=== PATIENT | male | born 1955 | race Hispanic/Latino ===

== ENCOUNTER 2016-10-08 10:52 | Inpatient (IN) | payer MEDICAID, OTHER ==
[2016-09-17 10:06] VITALS: BMI 27.8
[2016-10-08] MEDS ORDERED: Lactated Ringer's 1,000 ML IV ONE ×2 (12:14)
[2016-10-08] MEDS ORDERED: Lidocaine 2% Jelly (Uro-Jet) ONE (12:23)
[2016-10-08] MEDS ORDERED: cefTRIAXone IV 1 gm in Dextros 50 ML IVPB ONE (12:23)
[2016-10-08] MEDS ORDERED: Midazolam 2 MG/2 ML VIAL ONE (12:45)
[2016-10-08] MEDS ORDERED: Propofol 10 mg/ml Inj (20 ML) ONE (12:45)
[2016-10-08] MEDS ORDERED: Neostigmine Methylsulfate 3mg/3ml Syringe IV ONE (14:05)
[2016-10-08] MEDS ORDERED: Oxycodone/Acetaminophen 5/325 mg Tab PO PRN (14:21)
[2016-10-08] MEDS ORDERED: Racepinephrine 2.25% Inhal Soln 0.5 ML UD ONE (14:22)
[2016-10-08] MEDS ORDERED: HYDROmorphone 0.5 mg/0.5 ml ISec IVP PRN (14:25)
[2016-10-08] MEDS ORDERED: Dexamethasone 4 mg/1 ml IVP PRN (14:25)
[2016-10-08] MEDS ORDERED: Racepinephrine 2.25% Inhal Soln 0.5 ML UD INH ONE (14:45)
[2016-10-08] MEDS ORDERED: Gentamicin 80 mg in 0.9% NS 80 MG/100 ML BAG IVPB ONE (14:48)
--- NOTE | 2016-10-08 22:12 | OP ---
PROCEDURE DATE: 10/08/2016 PREOPERATIVE DIAGNOSES: Urinary retention, prostate cancer, voiding dysfunction, hematuria, elevated PSA, and occasional overflow incontinence. POSTOPERATIVE DIAGNOSES: Urinary retention, prostate cancer, voiding dysfunction, hematuria, elevated PSA, and occasional overflow incontinence. PROCEDURE: PVP GreenLight laser TURP. SURGEON: Dr. Terrence Hernández. ESTIMATED BLOOD LOSS: Less than 25 mL. COMPLICATIONS: There were no complications. INDICATIONS: See history and physical for further details. A very pleasant gentleman, here for the above procedure. We discussed the options of including the risks and expectations for ejaculatory dysfunction, specifically retrograde, we also discussed the permanent . We also discussed the treat the prostate cancer per se at all, but may help his urinary retention. We did discuss open prostatectomy. We discussed robotic prostatectomy. We had many discussions with the patient, with the sister, but she has passed on. I had further discussion with the patient. She is here now for the above procedure. DESCRIPTION OF PROCEDURE: After obtaining informed consent, the patient was placed on the table. Routine monitor were placed. Time-out was called to confirm the patient's positioning, etc. We confirmed the patient. The patient was in lithotomy position. Time-out was called. Antibiotic prophylaxis was given and administered. I just want to mention upon introduction of the resectoscope, we used a 22-Czech resectoscope continuous flow. We introduced with a visual obturator. No stricture was identified from the previous study . Vessel drained more than a liter of urine, but it is all clear urine. We now inspected the bladder, extremely heavily trabeculated. It is an interesting picture. At this point, we could not identify the orifice . The bladder neck was identified. We began our resection with power of 80. went across the bladder neck at 5 and 7. We then worked our way to 7 and 11 and factor 1. We increased the up to about 120. It went very nicely and smoothly. were nicely wide open. From the vera, we kept the vera intact. Picture was taken with the water not running. We made sure, we had good coagulation, any bleeding was stopped with coags, but really it was minimal bleeding. The patient tolerated this procedure without complication. At this point, we inserted a Carrillo catheter to the right urethra, 22-Czech. I also want to mention that when I took out the resectoscope and I watched the urine flow, it was a very good strong stream with a full bladder. The patient tolerated the procedure without complication, brought to the recovery room with the CBI running with the urine essentially clear. Minimal blood noted. The patient will be admitted to the hospital for observation, so we can monitor him closely, and I will discuss the timings of the catheter removed. We have to discuss and hopefully preop. Hopefully, the bladder will resume some of its function. Terrence Hernández MD
--- NOTE | 2016-10-08 23:04 | HP ---
REASON FOR ADMISSION: Urinary retention and prostate cancer. HISTORY OF PRESENT ILLNESS: Mr. Sweeney is a very pleasant gentleman. He is 61 years old. He mostly lives alone. He used to come to the office with his sister who has recently passed who was instrumental in helping him. The plan after much discussion with her and him at that time was for today for a PVP GreenLight laser TURP. The patient has underlying prostate cancer very low grade and very few biopsies that are positive. We had discussed options, the possibility of a treatment, with an open prostatectomy which may help his urinary retention as well. The possibility for what we are planning for now is PVP GreenLight laser TURP with the eventual possibility for radiation therapy. He is a relatively young gentleman with some underlying hypertension. No history of diabetes. And he is being admitted now today for PVP GreenLight laser TURP. I have explained to the patient, risks, benefits, and alternatives. The risk and specifically the expectation for retrograde ejaculation are discussed. We also discussed other risks. We discussed that this therapy does not treat prostate cancer. And we also explained that there is a risk that it will not stop his retention especially given his history. PAST MEDICAL/SURGICAL HISTORY: As mentioned above. No history of diabetes, underlying hypertension. He has a history of thyroid. He also has some psychiatric history. I think there is a large component. I have explained to the patient, above his urinary retention is his psychiatric medication. But he needs them for obvious reasons. MEDICATIONS: See the chart. ALLERGIES: NONE. SOCIAL HISTORY: Essentially as mentioned above. PHYSICAL EXAMINATION GENERAL: Well-nourished male, in no apparent distress. VITAL SIGNS: Within normal limits. LUNGS: Clear. ABDOMEN: Soft. Difficult to evaluate for distention. GENITOURINARY: I know that on bladder scan he always has at least a liter in his bladder. He has normal bowels. He is circumcised. No testicular masses. RECTAL: 30g prostate, soft and smooth. LABORATORY DATA: See the chart. DIAGNOSES: Prostate cancer, urinary retention, and voiding dysfunction. This is a very pleasant gentleman with his retention. He has no upper tract disease obvious at this point. We are planning for PVP GreenLight laser TURP and then we are going to plan for discussing the possibility for radiation. I am trying to assess who is part of his care now that his sister has passed. So the plan is as follows: 1. Antibiotic prophylaxis. 2. PVP GreenLight laser TURP and then further plans will follow. ADDENDUM: Patient also has another urologist before me and I have been discussing care with him as well. And we will keep him in the loop as well. Terrence Hernández MD
[2016-10-09] MEDS: Levothyroxine 75 MCG TAB PO SCH (06:04)
--- NOTE | 2016-10-09 13:15 | PCM.PSYCH ---
Initial Psychiatric Evaluation - Initial Psychiatric Evaluation Chief Complaint (in patient's own words): "I hear voices sometimes" Patient's Reaction to Hospitalization: cooperative History of Present Illness and Precipitating Events: The patient was seen, the chart was reviewed and the case was discussed. Mr Galvin is a 61 year old male with a past psychiatric history of schizoaffective disorder - bipolar type, who is admitted for a Transurethral resection of the prostate with Dr Mikey Hernández. During our interview he was very pleasant and only admitted to fatigue. He did not have disorganized speech or behavior or delusions. The patient currently denies any psychiatric symptoms including auditory hallucinations, visual hallucinations, paranoia, or having special schaefer. He stated he's heard voices in the past as if God was talking to him. He sees Dr Lawrence every 3 months for treatment of his psychiatric illness. He stated he's been admitted to a hospital for his psychiatric illness about 10-12x in the past with his last hospitalization in 2006. Psychiatric Hx: Schizoaffective disorder - bipolar type Other Medical Hx: Prostate CA s/p TURP, hypothyroidism Psychiatric Medications: aripiprazole 2mg po daily, benztropine 1mg po bid, clonazepam 0.5mg po bid, escitalopram 20mg po daily, perphenazine 16mg po bid, risperdal 2mg qam/qpm and 4mg po qpm, risperdal 4mg po hs Social Hx: single, lives by himself, no children, denies EtOH abuse, denies all other drug abuse; sister recently who was instrumental in taking care of him Fam Hx: denies Current Medications: Active Medications Generic Name Dose Route Start Last Admin Trade Name Freq PRN Reason Stop Dose Admin Aripiprazole 2 mg 10/10/16 10:00 Abilify PO DAILY CATHIE Benztropine Mesylate 1 mg 10/09/16 18:00 Cogentin PO BID CATHIE Clonazepam 0.5 mg 10/09/16 18:00 Klonopin PO BID CATHIE Escitalopram Oxalate 20 mg 10/10/16 10:00 Lexapro PO DAILY CATHIE Home Med 16 mg 10/09/16 18:00 Perphenazine [Perphenazine] PO BID CATHIE Gentamicin Sulfate 80 mg/ 102 mls @ 100 mls/hr 10/08/16 14:30 10/08/16 14:45 Sodium Chloride IVPB 102 mls Q24H CATHIE Administration Levothyroxine Sodium 75 mcg 10/09/16 06:30 10/09/16 06:04 Synthroid PO 75 mcg DAILY@0630 CATHIE Administration Lisinopril 10 mg 10/09/16 10:00 10/09/16 10:18 Zestril PO 10 mg DAILY CATHIE Administration Oxycodone/Acetaminophen 1 tab 10/08/16 14:21 10/08/16 21:50 Percocet 5/325 Mg Tab PO 10/11/16 14:22 1 tab Q6H PRN Administration Bladder Spasm Risperidone 4 mg 10/08/16 22:00 10/08/16 21:51 Risperdal Tab PO 4 mg HS CATHIE Administration Risperidone 2 mg 10/10/16 10:00 Risperdal Tab PO QAM [facility] Past Psychiatric History - Past Psychiatric History Prior Professional Help: Patient of Dr Lawrence outpatient Prior Psychiatric Treatment: 10-12x prior hospital visits for psychiatric related symptoms History of ETOH/Drug Use: denies History of Family Illness: denies Pertinent Medical Hx (Current Medical&Sleep Prob, Allergies): Allergies Allergy/AdvReac Type Severity Reaction Status Date / Time hydrochlorothiazide Allergy Verified 06/03/15 11:43 [From Dyazide] triamterene [From Dyazide] Allergy Verified 06/03/15 11:43 Levothyroxine [Synthroid] 0.075 mg PO DAILY 08/13/14 Benztropine [Cogentin] 1 mg PO BID 06/03/15 Escitalopram [Lexapro] 20 mg PO DAILY 06/03/15 Lisinopril 10 mg PO DAILY 06/03/15 Tamsulosin [Flomax] 0.4 mg PO DAILY #30 cap 06/03/15 clonazePAM [Klonopin] 0.5 mg PO BID 06/03/15 Omeprazole 1 cap PO DAILY 09/05/15 ARIPiprazole [Abilify] 2 mg PO DAILY 09/17/16 Perphenazine 16 mg PO BID 09/17/16 Risperidone [Risperdal] 2 mg PO QAM 10/08/16 Risperidone [Risperdal] 4 mg PO QPM 10/08/16 Review of Systems - Psychiatric Psychiatric: absent: Anxiety, Auditory Hallucinations, Confusion, Depression, Homicidal Ideation, Irritability, Suicidal Ideation, Visual Hallucinations Mental Status Examination - Personal Presentation Personal Presentation: Looks older than stated age - Affect Affect: Constricted - Motor Activity Motor Activity: Calm - Reliability in Providing Information Reliability in Providing Information: Good - Speech Speech: Organized - Mood Mood: Neutral - Formal Thought Process Formal Thought Process: No Impairment - Obsessions/Compulsions Obsessions: No Compulsions: No - Cognitive Functions Orientation: Person, Place, Situation, Time Sensorium: Alert Attention/Concentration: Attentive Abstract Thinking: Hale Estimate of Intelligence: Average Judgement: Imparied, as evidence by: Lack of insight into illness Memory: Recent intact, as evidence by: Ability to recall events of the day - Risk Risk: Diminished functioning - Limitations Limitations: Living alone, Other (sister recently who was instrumental in taking care of him) DSM 5 DX - DSM 5 DSM 5 Diagnosis: psychoaffective disorder - bipolar type - Recommended/Plan of Treatment Treatment Recommendations and Plan of Treatment: CBT Psychoeducation Supportive therapy con't home psychiatric medications con't aripiprazole 2mg po daily con't benztropine 1mg po bid con't clonazepam 0.5mg po bid con't escitalopram 20mg po daily con't risperidone 2mg po qam con't risperidone 4mg po hs pt was encouraged to continue seeing his outpatient psychiatrist time spent: 29 mins Prognosis: good with treatment
[2016-10-09] MEDS ORDERED: PERPHENAZINE 16 MG PO SCH (18:00)
[2016-10-10 05:44] VITALS: TEMP 98
[2016-10-10] MEDS: Levothyroxine 75 MCG TAB PO SCH (06:13)
[2016-10-10 08:27] VITALS: RESP 18; O2SAT 96
[2016-10-10] MEDS ORDERED: cefTRIAXone 1 gm in Water For Injection 2.1 ML IM ONE (09:00)
[2016-10-10 10:00] VITALS: BP 108/76
[2016-10-10 10:32] VITALS: PULSE 105
== END 2016-10-10 13:38 | disposition home or self-care (01) | DRG 336 ==
LOC: C.SDS 10:52 → C.9S 14:40 → C.6T 17:29
PROVIDERS: ADMIT Urology; ATTEND Urology
PROC: 0VT08ZZ Resection of Prostate, Via Natural or Artificial Opening Endoscopic (ICD-10-PCS; principal; 2016-10-08 12:30)
DX: C61 Malignant neoplasm of prostate (principal); F25.0 Schizoaffective disorder, bipolar type; N32.89 Other specified disorders of bladder; R31.9 Hematuria, unspecified; R33.9 Retention of urine, unspecified; N39.490 Overflow incontinence; I10 Essential (primary) hypertension; E03.9 Hypothyroidism, unspecified

== ENCOUNTER 2017-06-10 13:22 | Observation (INO) | payer OTHER ==
[2017-06-05 08:40] VITALS: BMI 25.8
[2017-06-10] MEDS ORDERED: Propofol 10 mg/ml Inj (20 ML) ONE (17:05)
[2017-06-10] MEDS ORDERED: Ciprofloxacin 400mg/200ml D5W 400 MG/200 ML BAG IVPB ONE (17:16)
[2017-06-10] MEDS ORDERED: HYDROmorphone 0.5 mg/0.5 ml ISec IVP PRN (17:44)
[2017-06-10 23:19] VITALS: RESP 20
[2017-06-11] MEDS: Oxycodone/Acetaminophen 5/325 mg Tab PO PRN ×2 (00:11→18:08)
--- NOTE | 2017-06-11 14:57 | CP.PCM.CON ---
<Joleen Rosales - Last Filed: 06/11/17 15:32> History of Present Illness - History of Present Illness History of Present Illness: Medicine Consult for Dr. Frazier 61 year old male s/p transrectal prostate biopsy for malignant prostate neoplasm by Dr. Hernández who consulted medicine for patient's extensive medical history consisting of hypertension, hypothyroidism, and several psych disorders. Patient is a poor historian. Patient is seen in slight discomfort following biopsy yesterday. He is complaining of slight left sided lower abdominal pain that began after the surgery. Patient states he had one bowel movement with very loose consistency and small amounts of blood. Patient also complains of slight nausea although he states he was able to eat breakfast this morning. Patient denies chest pain, shortness of breath, abdominal pain, fevers , chills, or cough. PMD: Dr. Navya Rhodes Psychiatrist: Dr. Gareth Lawrence Past medical history: prostate cancer, hypertension, hypothyroidism, multiple psych disorders allergies: triamterene -reaction: patient faints surgical: prostate biopsy and other prostate surgery that patient could not remember Family history: aunt with breast cancer, schizophrenia and bipolar disorder in family medications: Abilify 2mg po, Benztropine 1mg BID, Klonopin .5 mg PO BID Lexapro 20mg PO Synthroid 75 mcg po Lisinopril 10mg po Percocet 5/325 q6 prn Risperdal 2mg po am Risperdal 4mg po pm tamsulosin.4mg po Review of Systems - Constitutional Constitutional: Anorexia. absent: Chills - EENT Eyes: absent: Blurred Vision - Cardiovascular Cardiovascular: absent: Chest Pain, Dyspnea, Leg Edema, Palpitations, Pedal Edema - Respiratory Respiratory: absent: Cough, Dyspnea - Gastrointestinal Gastrointestinal: Abdominal Pain, Hematochezia, Nausea. absent: Vomiting - Integumentary Integumentary: absent: Rash - Psychiatric Psychiatric: Confusion - Hematologic/Lymphatic Hematologic: absent: Easy Bleeding, Easy Bruising Past Patient History - Past Medical History & Family History Past Medical History?: Yes - Past Social History Smoking Status: Never Smoked - CARDIAC Hx Cardiac Disorders: Yes Hx Hypertension: Yes Other/Comment: ENLARGED HEART - PULMONARY Hx Respiratory Disorders: Yes Hx Bronchitis: Yes - NEUROLOGICAL Hx Neurological Disorder: Yes Hx Seizures: Yes (PATIENT DENIES he shakes when anxious) - HEENT Hx HEENT Problems: Yes (READING GLASSES) - RENAL Hx Chronic Kidney Disease: Yes (renal insufficiency) - ENDOCRINE/METABOLIC Hx Endocrine Disorders: Yes Hx Hypothyroidism: Yes - HEMATOLOGICAL/ONCOLOGICAL Hx Blood Disorders: Yes Hx Cancer: Yes (bladder and prostate) - INTEGUMENTARY Hx Dermatological Problems: No - MUSCULOSKELETAL/RHEUMATOLOGICAL Hx Musculoskeletal Disorders: No Hx Falls: No - GASTROINTESTINAL Hx Gastrointestinal Disorders: Yes Hx Gastroesophageal Reflux: Yes - GENITOURINARY/GYNECOLOGICAL Hx Genitourinary Disorders: Yes Hx Bladder Cancer: Yes Hx Prostate Cancer: Yes Hx Prostate Problems: Yes - PSYCHIATRIC Hx Psychophysiologic Disorder: Yes Hx Anxiety: Yes Hx Bipolar Disorder: Yes Hx Depression: Yes Hx Schizophrenia: Yes Hx Substance Use: No - SURGICAL HISTORY Hx Surgeries: Yes Other/Comment: DENTAL EXTRACTIONS. PROSTATE BIOPSY TURP CYSTOSCOPY TURBT - ANESTHESIA Hx Anesthesia: Yes Hx Anesthesia Reactions: No Hx Malignant Hyperthermia: No Has any member of the family had a problem w/ anesthesia?: No Meds Allergies/Adverse Reactions: Allergies Allergy/AdvReac Type Severity Reaction Status Date / Time hydrochlorothiazide Allergy Intermediate DIZZINESS Verified 06/05/17 08:40 [From Dyazide] triamterene [From Dyazide] Allergy Intermediate DIZZINESS Verified 06/05/17 08: 40 - Medications Medications: Current Medications Aripiprazole (Abilify) 2 mg PO DAILY [facility] Last Admin: 06/11/17 10:56 Dose: 2 mg Benztropine Mesylate (Cogentin) 1 mg PO BID [facility] Last Admin: 06/11/17 10:55 Dose: 1 mg Clonazepam (Klonopin) 0.5 mg PO BID [facility] Last Admin: 06/11/17 10:55 Dose: 0.5 mg Escitalopram Oxalate (Lexapro) 20 mg PO DAILY [facility] Last Admin: 06/11/17 11:45 Dose: 20 mg Levothyroxine Sodium (Synthroid) 75 mcg PO 0630 [facility] Lisinopril (Zestril) 10 mg PO DAILY [facility] Last Admin: 06/11/17 10:55 Dose: 10 mg Oxycodone/Acetaminophen (Percocet 5/325 Mg Tab) 1 tab PO Q6H PRN PRN Reason: Bladder Spasm Stop: 06/13/17 18:09 Last Admin: 06/11/17 00:11 Dose: 1 tab Risperidone (Risperdal Tab) 2 mg PO QAM [facility] Last Admin: 06/11/17 10:55 Dose: 2 mg Risperidone (Risperdal Tab) 4 mg PO QPM [facility] Tamsulosin HCl (Flomax) 0.4 mg PO DAILY [facility] Last Admin: 06/11/17 10:55 Dose: 0.4 mg Physical Exam - Constitutional Appears: Well - Head Exam Head Exam: ATRAUMATIC, NORMAL INSPECTION, NORMOCEPHALIC - Eye Exam Eye Exam: EOMI, Normal appearance, PERRL Pupil Exam: NORMAL ACCOMODATION, PERRL - ENT Exam ENT Exam: Mucous Membranes Moist, Normal Exam - Neck Exam Neck exam: Positive for: Normal Inspection - Respiratory Exam Respiratory Exam: Clear to Auscultation Bilateral, NORMAL BREATHING PATTERN - Cardiovascular Exam Cardiovascular Exam: REGULAR RHYTHM - GI/Abdominal Exam GI & Abdominal Exam: Normal Bowel Sounds, Soft. absent: Tenderness - Extremities Exam Extremities exam: Positive for: normal inspection. Negative for: pedal edema - Back Exam Back exam: NORMAL INSPECTION - Neurological Exam Neurological exam: Alert, CN II-XII Intact, Normal Gait, Oriented x3 - Psychiatric Exam Psychiatric exam: Flat Affect, Normal Mood - Skin Skin Exam: Dry, Intact, Normal Color, Warm Results - Vital Signs Recent Vital Signs: Last Vital Signs Temp 98.2 F 06/11/17 07:30 Pulse 76 06/11/17 07:30 Resp 20 06/11/17 07:30 BP 120/74 06/11/17 07:30 Pulse Ox 97 06/11/17 12:00 Assessment & Plan - Assessment and Plan (Free Text) Assessment: S/P POD #1 Transrectal Prostate Biopsy management as per Dr. Betty Wei for pain Flomax .4mg po daily Schizophrenia/ other psychiatric disorder continue home medications: Abilify 2mg po daily Benztropine 1mg po BID Klonopin .5mg po BID Lexapro 20mg po daily Risperidone 2mg po qam Risperidone 4mg po qpm Perphenazine 16mg po BID patient to continue to follow with psychiatrist as an outpatient Hypothyroidism continue home medication: Synthroid 75mcg po HTN continue home medication: Lisinopril 10mg po daily GERD home med omeprazole is NF Protonix 20mg po daily Plan discussed with Dr. Frazier <Sotero Frazier - Last Filed: 06/13/17 17:14> Results - Vital Signs Recent Vital Signs: Last Vital Signs Temp 98.4 F 06/12/17 07:48 Pulse 92 H 06/12/17 07:48 Resp 20 06/12/17 07:48 BP 101/68 06/12/17 07:48 Pulse Ox 96 06/12/17 12:30 - Labs Result Diagrams: 06/12/17 07:00 06/12/17 07:00 Attending/Attestation - Attestation I have personally seen and examined this patient.: Yes I have fully participated in the care of the patient.: Yes I have reviewed all pertinent clinical information: Yes Notes (Text): Patient was seen and examined by me with the resident I agree with the assessment and the plan 06/13/17 17:13
[2017-06-11] MEDS: Pantoprazole 40 mg EC Tab PO SCH (18:06)
[2017-06-11 23:16] VITALS: O2SAT 96
--- NOTE | 2017-06-11 23:16 | PCM.URO ---
Urology Progress Note - General General: No Complaints, Tolerating Diet - Subjective Abdominal Pain: No Flank Pain: No Nausea: No Vomiting: No Voiding Well: No (catheter in place) Hematuria: No Dsypnea: No Chest Pain: No Fever & Chills: No - Objective Intake & Output: Intake & Output 06/11/17 06/11/17 06/12/17 06:59 18:59 06:59 Intake Total 720 350 Output Total 1000 1350 500 Balance -1000 -630 -150 Intake: Oral 720 350 Output: Urine 1000 1350 500 Urethral (Carrillo) 1350 500 Other: # Bowel Movements 2 Vital Signs: Vital Signs - 24 hr 06/10/17 06/11/17 06/11/17 23:17 07:30 08:00 Temperature 98.6 F 98.2 F Pulse Rate 69 76 Respiratory 20 20 Rate Blood Pressure 101/62 120/74 O2 Sat by Pulse 96 97 97 Oximetry 06/11/17 06/11/17 12:00 16:00 Temperature 98.4 F Pulse Rate 85 Respiratory 20 Rate Blood Pressure 95/61 L O2 Sat by Pulse 97 98 Oximetry - Physical Exam Abdominal Exam: Soft, Non-Tender, Non-Distended Bowel Sounds: Normal Back: No CVA Tenderness Genitalia: Without Inflammation Urinary Catheter Draining Well: Yes Urine Color: Clear - Male Phallus: Normal Scrotum: Normal - Plan Catheter Care: Yes Ambulation - Out of Bed: Yes Intake & Output: Yes Additional Information: Imp: urinary retention. Hx of prostate cancer. Hx of hypertension, hypothyroidism, schizophrenia. Clinically stable with ctheter in place. - Date & Time of Note Date: 06/11/17 Time: 15:40
[2017-06-12] MEDS ORDERED: Levothyroxine 75 MCG TAB PO SCH (06:30)
[2017-06-12 07:21] LABS: BASO # 0.1 K/uL (0.0-0.2); BASO % 0.8 % (0.0-2.0); EOS # 0.3 K/uL (0.0-0.7); EOS % 3.4 % (0.0-4.0); HEMOGLOBIN 9.9 g/dL (12.0-18.0); LYMPH % 20.4 % (20.0-40.0); MEAN CELL VOLUME 89.5 fL (80.0-94.0); MEAN CORPUSCULAR HEMOGLOBIN 30.5 pg (27.0-31.0); MEAN CORPUSCULAR HGB CONC 34.1 g/dL (33.0-37.0); MEAN PLATELET VOLUME 7.9 fL (7.2-11.7); MONO # 1.1 K/uL (0.0-0.8); MONO % 10.7 % (0.0-10.0); NEUT # 6.4 K/uL (1.8-7.0); NEUT % 64.7 % (50.0-75.0); RBC 3.24 Mil/uL (4.40-5.90); RED CELL DISTRIBUTION WIDTH 13.3 % (11.5-14.5); WHITE BLOOD COUNT 9.9 K/uL (4.8-10.8)
[2017-06-12 07:49] VITALS: BP 101/68; PULSE 92; TEMP 98.4
[2017-06-12 08:02] LABS: ALB/GLOB RATIO 0.9 (1.0-2.1); ALBUMIN 3.2 g/dL (3.5-5.0); ALT/SGPT 18 U/L (21-72); AST/SGOT 27 U/L (17-59); BLOOD UREA NITROGEN 25 mg/dL (9-20); CALCIUM 8.7 mg/dl (8.6-10.4); GFR AFRICAN-AMERICAN > 60; GFR NON-AFRICAN AMERICAN 52
--- NOTE | 2017-06-12 09:21 | CP.PCM.PN ---
Subjective - Date & Time of Evaluation Date of Evaluation: 06/12/17 Time of Evaluation: 07:00 - Subjective Subjective: Progress not for Dr. Frazier Patient seen and examined at bedside and in no acute distress. Patient has not had another bowel movement since yesterday. Patient has no complaints and no pain. Patient denies chest pain, sob, abdominal pain, nausea, vomiting, constipation, or diarrhea. Objective - Vital Signs/Intake and Output Vital Signs (last 24 hours): Temp Pulse Resp BP Pulse Ox 98.4 F 92 H 20 101/68 96 06/12/17 07:48 06/12/17 07:48 06/12/17 07:48 06/12/17 07:48 06/12/17 08:31 Intake and Output: 06/12/17 06/12/17 06:59 18:59 Intake Total 350 240 Output Total 500 900 Balance -150 -660 - Medications Medications: Current Medications Aripiprazole (Abilify) 2 mg PO DAILY [facility] Last Admin: 06/11/17 10:56 Dose: 2 mg Benztropine Mesylate (Cogentin) 1 mg PO BID [facility] Last Admin: 06/11/17 18:07 Dose: 1 mg Clonazepam (Klonopin) 0.5 mg PO BID [facility] Last Admin: 06/11/17 18:07 Dose: 0.5 mg Escitalopram Oxalate (Lexapro) 20 mg PO DAILY [facility] Last Admin: 06/11/17 11:45 Dose: 20 mg Levothyroxine Sodium (Synthroid) 75 mcg PO 0630 [facility] Last Admin: 06/12/17 06:26 Dose: 75 mcg Lisinopril (Zestril) 10 mg PO DAILY [facility] Last Admin: 06/11/17 10:55 Dose: 10 mg Oxycodone/Acetaminophen (Percocet 5/325 Mg Tab) 1 tab PO Q6H PRN PRN Reason: Bladder Spasm Stop: 06/13/17 18:09 Last Admin: 06/11/17 18:08 Dose: 1 tab Pantoprazole Sodium (Protonix Ec Tab) 40 mg PO DAILY [facility] Last Admin: 06/11/17 18:06 Dose: 40 mg Perphenazine (Perphenazine) 16 mg PO BID [facility] Last Admin: 06/11/17 18:11 Dose: 16 mg Risperidone (Risperdal Tab) 2 mg PO QAM [facility] Last Admin: 06/11/17 10:55 Dose: 2 mg Risperidone (Risperdal Tab) 4 mg PO QPM [facility] Last Admin: 06/11/17 21:56 Dose: 4 mg Tamsulosin HCl (Flomax) 0.4 mg PO DAILY [facility] Last Admin: 06/11/17 10:55 Dose: 0.4 mg - Labs Labs: 06/12/17 07:00 06/12/17 07:00 - Additional Findings Additional findings: - Constitutional Appears: Well - Head Exam Head Exam: ATRAUMATIC, NORMAL INSPECTION, NORMOCEPHALIC - Eye Exam Eye Exam: EOMI, Normal appearance, PERRL Pupil Exam: NORMAL ACCOMODATION, PERRL - ENT Exam ENT Exam: Mucous Membranes Moist, Normal Exam - Neck Exam Neck exam: Positive for: Normal Inspection - Respiratory Exam Respiratory Exam: Clear to Auscultation Bilateral, NORMAL BREATHING PATTERN - Cardiovascular Exam Cardiovascular Exam: REGULAR RHYTHM - GI/Abdominal Exam GI & Abdominal Exam: Normal Bowel Sounds, Soft. absent: Tenderness - Extremities Exam Extremities exam: Positive for: normal inspection. Negative for: pedal edema - Back Exam Back exam: NORMAL INSPECTION - Neurological Exam Neurological exam: Alert, CN II-XII Intact, Normal Gait, Oriented x3 - Psychiatric Exam Psychiatric exam: Flat Affect, Normal Mood - Skin Skin Exam: Dry, Intact, Normal Color, Warm Assessment and Plan - Assessment and Plan (Free Text) Assessment: S/P POD #2 Transrectal Prostate Biopsy management as per Dr. Betty Wei for pain Flomax .4mg po daily Schizophrenia/ other psychiatric disorder continue home medications: Abilify 2mg po daily Benztropine 1mg po BID Klonopin .5mg po BID Lexapro 20mg po daily Risperidone 2mg po qam Risperidone 4mg po qpm Perphenazine 16mg po BID patient to continue to follow with psychiatrist as an outpatient Hypothyroidism continue home medication: Synthroid 75mcg po HTN continue home medication: Lisinopril 10mg po daily GERD home med omeprazole is NF Protonix 20mg po daily Plan discussed with Dr. Frazier Patient stable as per medicine, please re-consult if needed. Patient explained importance of following up with psychiatrist and primary doctor as an outpatient.
[2017-06-12] MEDS: Pantoprazole 40 mg EC Tab PO SCH (09:38)
--- NOTE | 2017-06-12 17:15 | CP.PCM.PN ---
Subjective - Date & Time of Evaluation Date of Evaluation: 06/12/17 Time of Evaluation: 17:15 - Subjective Subjective: Alert, awake, no active bleeding or pain. Objective - Vital Signs/Intake and Output Vital Signs (last 24 hours): Temp Pulse Resp BP Pulse Ox 98.4 F 92 H 20 101/68 96 06/12/17 07:48 06/12/17 07:48 06/12/17 07:48 06/12/17 07:48 06/12/17 12:30 Intake and Output: 06/12/17 06/12/17 06:59 18:59 Intake Total 350 740 Output Total 500 1700 Balance -150 -960 - Medications Medications: Current Medications Aripiprazole (Abilify) 2 mg PO DAILY [facility] Last Admin: 06/12/17 09:39 Dose: 2 mg Benztropine Mesylate (Cogentin) 1 mg PO BID [facility] Last Admin: 06/12/17 09:38 Dose: 1 mg Clonazepam (Klonopin) 0.5 mg PO BID [facility] Last Admin: 06/12/17 09:38 Dose: 0.5 mg Docusate Sodium (Colace) 100 mg PO BID [facility] Escitalopram Oxalate (Lexapro) 20 mg PO DAILY [facility] Last Admin: 06/12/17 09:39 Dose: 20 mg Levothyroxine Sodium (Synthroid) 75 mcg PO 0630 [facility] Last Admin: 06/12/17 06:26 Dose: 75 mcg Lisinopril (Zestril) 10 mg PO DAILY [facility] Last Admin: 06/12/17 09:38 Dose: 10 mg Oxycodone/Acetaminophen (Percocet 5/325 Mg Tab) 1 tab PO Q6H PRN PRN Reason: Bladder Spasm Stop: 06/13/17 18:09 Last Admin: 06/11/17 18:08 Dose: 1 tab Pantoprazole Sodium (Protonix Ec Tab) 40 mg PO DAILY [facility] Last Admin: 06/12/17 09:38 Dose: 40 mg Perphenazine (Perphenazine) 16 mg PO BID [facility] Last Admin: 06/12/17 09:39 Dose: 16 mg Risperidone (Risperdal Tab) 2 mg PO QAM [facility] Last Admin: 06/12/17 09:38 Dose: 2 mg Risperidone (Risperdal Tab) 4 mg PO QPM [facility] Last Admin: 06/11/17 21:56 Dose: 4 mg Tamsulosin HCl (Flomax) 0.4 mg PO DAILY [facility] Last Admin: 06/12/17 09:37 Dose: 0.4 mg - Labs Labs: 06/12/17 07:00 06/12/17 07:00 Assessment and Plan - Assessment and Plan (Free Text) Assessment: Patient with urinary retention, post cystoscopy by DR Hernández, alert and orientedx3, no bleeding noted. Carrillo catheter discontinued as per DR Hernández. Discharged home on augmentin for 7 days. Advised to follow up with DR Hernández in 1 week. To continue with home meds.
== END 2017-06-12 18:51 | disposition home or self-care (01) ==
LOC: C.SDS 13:22 → C.3T 17:36 → INTOOBSV 17:36 → C.9S 17:36 → C.3T 20:55
PROVIDERS: ADMIT Urology; ATTEND Urology
DX: R10.9 Unspecified abdominal pain (principal); C61 Malignant neoplasm of prostate; R97.20 Elevated prostate specific antigen [PSA]; N40.0 Benign prostatic hyperplasia without lower urinary tract symptoms; E03.9 Hypothyroidism, unspecified; I10 Essential (primary) hypertension; Z80.3 Family history of malignant neoplasm of breast; F20.9 Schizophrenia, unspecified; F31.9 Bipolar disorder, unspecified; N28.9 Disorder of kidney and ureter, unspecified; K21.9 Gastro-esophageal reflux disease without esophagitis
CPT/HCPCS: 36415; 80053; 83735; 84100; 85025; 88305; 88342; G0378; J0744; J1170; Q0175

== ENCOUNTER 2017-07-21 09:09 | Day surgery (SDC) | payer OTHER ==
[2017-06-05 08:40] VITALS: BMI 25.8
[2017-07-21] MEDS ORDERED: Propofol 10 mg/ml Inj (20 ML) ONE (10:45)
[2017-07-21 11:49] VITALS: TEMP 96.9
[2017-07-21 14:23] VITALS: RESP 15
[2017-07-21 14:28] VITALS: BP 109/51; PULSE 66; O2SAT 99
== END 2017-07-21 12:50 | disposition home or self-care (01) ==
LOC: C.ENDO 09:09
PROVIDERS: ATTEND Internal Medicine
DX: Z12.11 Encounter for screening for malignant neoplasm of colon (principal); K64.8 Other hemorrhoids; I12.9 Hypertensive chronic kidney disease with stage 1 through stage 4 chronic kidney disease, or unspecified chronic kidney disease; N18.3 Chronic kidney disease, stage 3 (moderate)
CPT/HCPCS: 45378; J2001; J2704

== ENCOUNTER 2017-11-05 06:37 | Inpatient (IN) | payer OTHER ==
[2017-10-27 11:37] VITALS: BMI 25.4
[2017-11-05] MEDS ORDERED: cefTRIAXone 1 gm 1 GM/100 ML BAG IVPB ONE (07:49)
[2017-11-05] MEDS ORDERED: Propofol 10 mg/ml Inj (20 ML) ONE (07:54)
[2017-11-05] MEDS ORDERED: Rocuronium 10 mg/ml (5 ml) ONE ×2 (07:56→10:26)
[2017-11-05] MEDS ORDERED: Succinylcholine Chloride 20 mg/ml Syr (5 ml) IV ONE (07:56)
[2017-11-05] MEDS ORDERED: ePHEDrine 50 mg/ml Inj ONE ×2 (08:05→10:18)
[2017-11-05] MEDS ORDERED: HYDROmorphone 0.5 mg/0.5 ml ISec IVP PRN ×2 (08:37→12:55)
[2017-11-05] MEDS ORDERED: Phenylephrine 10 mg/ml Inj ONE (10:18)
[2017-11-05 10:29] LABS: HEMOGLOBIN 10.8 g/dL (12.0-18.0); MEAN CELL VOLUME 89.4 fL (80.0-94.0); MEAN CORPUSCULAR HEMOGLOBIN 30.3 pg (27.0-31.0); MEAN CORPUSCULAR HGB CONC 33.9 g/dL (33.0-37.0); MEAN PLATELET VOLUME 8.6 fL (7.2-11.7); RBC 3.57 Mil/uL (4.40-5.90)
[2017-11-05 10:31] LABS: WHITE BLOOD COUNT 11.3 K/uL (4.8-10.8)
[2017-11-05] MEDS ORDERED: Morphine Monoject Barrel PCA 1mg/ml IV PRN (11:27)
[2017-11-05] MEDS ORDERED: Naloxone 0.4 mg/ml Inj (Adult) IVP PRN (11:27)
[2017-11-05] MEDS ORDERED: Neostigmine Methylsulfate 3mg/3ml Syringe IV ONE (11:41)
[2017-11-05] MEDS ORDERED: Lactated Ringer's 1,000 ML IV ONE ×2 (11:51→12:00)
[2017-11-05 13:38] LABS: HEMOGLOBIN 9.9 g/dL (12.0-18.0); MEAN CELL VOLUME 89.8 fL (80.0-94.0); MEAN CORPUSCULAR HEMOGLOBIN 29.7 pg (27.0-31.0); MEAN CORPUSCULAR HGB CONC 33.1 g/dL (33.0-37.0); MEAN PLATELET VOLUME 8.6 fL (7.2-11.7); RBC 3.32 Mil/uL (4.40-5.90); WHITE BLOOD COUNT 14.5 K/uL (4.8-10.8)
[2017-11-05] MEDS ORDERED: Ciprofloxacin 400mg/200ml D5W 400 MG/200 ML BAG IVPB ONE (14:13)
--- NOTE | 2017-11-05 16:43 | CP.PCM.CON ---
History of Present Illness - History of Present Illness History of Present Illness: Colten Winkler PGY1 -- Medicine Consult Note for Dr. Zach Ridley This is a 62 year old male with past medical history of prostatic hypertrophy, schizophrenia, depression, hypothyroidism, iron deficiency anemia, acid reflux, and hypertension who presents to [facility] for radical Prostatectomy, per Urologist Dr. Hernández. Patient reports that he initially presented to Dr. Hernández two year ago and was diagnosed with BPH. Patient reports that he urinates 3-4 times during the day and 1-2 times at night. Patient states that he has had at least 2 biopsies of his prostate performed and 1 TURP, per Dr. Hernández. Additionally, patient reports that he stopped taking his lisinopril for HTN one month ago because it made him dizzy. Patient admits to a dry cough present in the morning which he states his PMD is aware of and reports two recent CXRs and medical treatment with Flonase. Patient denies current chest pain, palpitations, shortness of breath, wheezing, sore throat, nausea, vomiting, diarrhea, constipation, dysuria, lightheadedness, dizziness, headache, changes to vision, changes to hearing, and lower extremity edema. PMHx: prostatic hypertrophy status-post radical prostatectomy 11/05/17 (Dr. Hernández), schizophrenia, depression, hypothyroidism, iron deficiency anemia ( most recent colonoscopy done by Dr. De Oliveira in August, but could not adequately examine colon due to poor prep, therefore is scheduled for repeat in 6 months) acid reflux, HTN PSHx: 2 prostate biopsies, 1 TURP, radical prostatectomy 11/05/17 (Dr. Hernández) PMD: Dr. Rhodes Heme Oncology: Dr. Wilde Psychiatrist: Dr. Otoole, last seen 1 month ago. (note: In process of getting transferred to another psychiatrist) Pharmacy: [facility] Allergies: Thiazides (presyncope) Home Medications, as confirmed by the above-named pharmacy: - Aripiprazole 2 mg daily - Benzotropine 1 mg BID - Clonazepam 0.5 mg BID - Escitalopram 20 mg daily - Iron/Folate No 6. daily - Levothyroxine 75 mcg daily - Omeprazole 20 mg daily - Perphenazine 16 mg BID - Risperidone 2 mg in AM daily - Risperidone 4 mg in PM daily - Tamsulosin 0.4 mg daily Social Hx: - Occupation- Patient has been unemployed for 41 years - Lives with roommate Dannie Lim - Denies current or past alcohol, drug, or cigarette use Family Hx: - Mother - [place], CAD, HTN - Father - alcoholic, required straight cath - Brother alive- HTN, HLD - Sister alive - no children Advanced Directive: Denies Proxy: Denies, states to contact his brother Manuel Code Status: Full code Review of Systems - Review of Systems All systems: reviewed and no additional remarkable complaints except - Constitutional Constitutional: As Per HPI - EENT Eyes: As Per HPI Ears: As Per HPI Nose/Mouth/Throat: As Per HPI - Cardiovascular Cardiovascular: As Per HPI - Respiratory Respiratory: As Per HPI - Gastrointestinal Gastrointestinal: As Per HPI - Genitourinary Genitourinary: As Per HPI - Reproductive: Male Reproductive:Male: As Per HPI - Musculoskeletal Musculoskeletal: As Per HPI - Integumentary Integumentary: As Per HPI - Neurological Neurological: As Per HPI - Psychiatric Psychiatric: As Per HPI - Endocrine Endocrine: As Per HPI - Hematologic/Lymphatic Hematologic: As Per HPI Past Patient History - Past Medical History & Family History Past Medical History?: Yes - Past Social History Smoking Status: Never Smoked - CARDIAC Hx Cardiac Disorders: Yes Hx Hypercholesterolemia: Yes (NO LONGER ON MED.) Hx Hypertension: Yes (" TOOK ME OFF THE MED. MY BP WAS TOO LOW") Other/Comment: ENLARGED HEART - PULMONARY Hx Respiratory Disorders: Yes Hx Bronchitis: Yes - NEUROLOGICAL Hx Neurological Disorder: No - HEENT Hx HEENT Problems: No - RENAL Hx Chronic Kidney Disease: Yes Other/Comment: 3RD STAGE KIDNEY DISEASE - PT VOIDS NOT ON DIALYSIS - ENDOCRINE/METABOLIC Hx Endocrine Disorders: Yes Hx Hypothyroidism: Yes - HEMATOLOGICAL/ONCOLOGICAL Hx Blood Disorders: Yes Hx Cancer: Yes (bladder and prostate) - INTEGUMENTARY Hx Dermatological Problems: No - MUSCULOSKELETAL/RHEUMATOLOGICAL Hx Musculoskeletal Disorders: No Hx Falls: No - GASTROINTESTINAL Hx Gastrointestinal Disorders: Yes Hx Gastroesophageal Reflux: Yes - GENITOURINARY/GYNECOLOGICAL Hx Genitourinary Disorders: Yes Hx Bladder Cancer: Yes Hx Prostate Cancer: Yes Hx Prostate Problems: Yes - PSYCHIATRIC Hx Psychophysiologic Disorder: Yes Hx Anxiety: Yes Hx Bipolar Disorder: Yes Hx Depression: Yes Hx Schizophrenia: Yes Hx Substance Use: No - SURGICAL HISTORY Hx Surgeries: Yes Other/Comment: DENTAL EXTRACTIONS. HX: CYSTO-PROSTATE BIOPSY - ANESTHESIA Hx Anesthesia: Yes Hx Anesthesia Reactions: No Hx Malignant Hyperthermia: No Meds Allergies/Adverse Reactions: Allergies Allergy/AdvReac Type Severity Reaction Status Date / Time hydrochlorothiazide Allergy Intermediate DIZZINESS Verified 10/27/17 11:35 [From Dyazide] triamterene [From Dyazide] Allergy Intermediate DIZZINESS Verified 10/27/17 11: 35 - Medications Medications: Current Medications Docusate Sodium (Colace) 100 mg PO TID [facility] Hydromorphone/Sodium Chloride (Dilaudid Police Liaison) 6 mg IV Q4H PRN; Protocol PRN Reason: Pain, moderate (4-7) Ceftriaxone Sodium 1 gm/ (Sodium Chloride) 100 mls @ 100 mls/hr IVPB DAILY [facility] PRN Reason: Protocol Potassium Chloride/Dextrose/Sod Cl (Potassium Chl 10 Meq In D5-1/2ns) 1,000 mls @ 150 mls/hr IV .Q6H40M [facility] Naloxone HCl (Narcan) 0.1 mg IVP Q2M PRN PRN Reason: apnea Physical Exam - Constitutional Appears: Non-toxic, No Acute Distress - Head Exam Head Exam: ATRAUMATIC, NORMAL INSPECTION, NORMOCEPHALIC - Eye Exam Eye Exam: EOMI, Normal appearance, PERRL Pupil Exam: NORMAL ACCOMODATION, PERRL. absent: Fixed, Unequal - ENT Exam ENT Exam: Mucous Membranes Moist, Normal Exam, Normal External Ear Exam, Normal Oropharynx - Neck Exam Neck exam: Positive for: Full Rom, Normal Inspection. Negative for: Lymphadenopathy, Thyromegaly - Respiratory Exam Respiratory Exam: Clear to Auscultation Bilateral, NORMAL BREATHING PATTERN. absent: Accessory Muscle Use, Chest Wall Tenderness, Decreased Breath Sounds, Prolonged Expiratory Phase, Rales, Rhonchi, Wheezes, Respiratory Distress, Stridor - Cardiovascular Exam Cardiovascular Exam: REGULAR RHYTHM, +S1, +S2 - GI/Abdominal Exam GI & Abdominal Exam: Normal Bowel Sounds, Soft. absent: Distended, Mass, Rebound, Rigid - Extremities Exam Extremities exam: Positive for: full ROM, normal capillary refill, normal inspection, pedal pulses present. Negative for: calf tenderness, joint swelling , pedal edema, tenderness - Back Exam Back exam: NORMAL INSPECTION - Neurological Exam Neurological exam: Alert, CN II-XII Intact, Normal Gait, Oriented x3 - Psychiatric Exam Psychiatric exam: Normal Affect, Normal Mood - Skin Skin Exam: Dry, Intact, Normal Color, Warm Results - Vital Signs Recent Vital Signs: Last Vital Signs Temp 97.6 F 11/05/17 11:51 Pulse 77 11/05/17 15:45 Resp 12 11/05/17 15:45 BP 105/64 11/05/17 15:45 Pulse Ox 100 11/05/17 15:45 - Labs Result Diagrams: 11/05/17 13:35 Labs: Laboratory Results - last 24 hr 11/05/17 11/05/17 11/05/17 07:40 10:25 13:35 WBC 11.3 H D 14.5 H RBC 3.57 L 3.32 L Hgb 10.8 L 9.9 L Hct 31.9 L 29.8 L MCV 89.4 89.8 MCH 30.3 29.7 MCHC 33.9 33.1 RDW 14.0 14.0 Plt Count 197 184 MPV 8.6 8.6 Blood Type O POSITIVE Antibody Screen Negative Assessment & Plan - Assessment and Plan (Free Text) Assessment: Assessment: This is 62-year-old male with past medical history of prostatic hypertrophy, schizophrenia, depression, hypothyroidism, iron deficiency anemia, acid reflux, and hypertension who was admitted under Urologist Dr. Hernández for prostatectomy performed today (11/05), patient is status-post op day 0. Medicine team consulted to manage chronic medical issues. Plan: 1. Status-post op day 0 for prostatectomy - Managed per primary physician - Incentive spirometry ten times an hour, while patient is awake - OOB as tolerated - PT eval & treat - Start on home med: - Tamsulosin 0.4mg daily 2. Schizophrenia - Noticed medication list containing multiple antipsychotic (1st and 2nd gen). Called pharmacy listed in HPI to confirm medications. - Will restart home-meds (as confirmed by pharmacist) - Aripiprazole 2 mg daily - Benzotropine 1 mg BID - Perphenazine 16 mg BID - Risperidone 2 mg in AM daily - Risperidone 4 mg in PM daily 3. Hypothyroidism - Started home med - Levothyroxine 75 mcg PO daily - T4 pending - TSH pending 4. Hypertension - No medications for Blood Pressure noted on med list and/or per patient pharmacy - [id number] - Monitor 5. GERD - On omeprazole but not carried by our pharmacy - Start on protonix 40mg PO daily 6. Iron-Deficiency Anemia - Hgb=9.9 - Most recent colonoscopy done by Dr. De Oliveira in August - Could not adequately examine colon due to poor prep, therefore is scheduled for repeat in 6 months - Start Ferrous Sulfate 1 tab PO daily - Start Folate 1 tab PO daily - Monitor with daily CBC 7. History of anxiety and depression - Start on home meds: - Clonazepam 0.5 mg BID - Escitalopram 20 mg daily 8. Prophylaxis DVT: - PT evaluate and treat, recommendations appreciated - OOB as tolerated - SCDs - holding anticoagulants for now, considering post-op day 0 GI: - Protonix 40mg PO Daily - HHD 2gm Na, low carb diet Patient seen and case discussed in detail with Attending Physician Dr. Zach Winkler PGY1
[2017-11-05] MEDS: Potassium Chl 10 mEq in D5-1/2 1,000 ML IV SCH ×3 (16:58→23:52)
[2017-11-05 18:00] VITALS: RESP 20
[2017-11-06] MEDS: Potassium Chl 10 mEq in D5-1/2 1,000 ML IV SCH ×5 (05:05→21:12)
[2017-11-06] MEDS: Levothyroxine 75 MCG TAB PO SCH (05:41)
[2017-11-06 07:45] LABS: HEMOGLOBIN 8.3 g/dL (12.0-18.0); MEAN CELL VOLUME 89.2 fL (80.0-94.0); MEAN CORPUSCULAR HEMOGLOBIN 30.6 pg (27.0-31.0); MEAN CORPUSCULAR HGB CONC 34.3 g/dL (33.0-37.0); MEAN PLATELET VOLUME 8.8 fL (7.2-11.7); RBC 2.7 Mil/uL (4.40-5.90)
[2017-11-06 08:36] LABS: ALB/GLOB RATIO 1.1 (1.0-2.1); ALBUMIN 2.7 g/dL (3.5-5.0); ALT/SGPT 25 U/L (21-72); AST/SGOT 16 U/L (17-59); BLOOD UREA NITROGEN 17 mg/dL (9-20); CALCIUM 8.1 mg/dl (8.6-10.4); GFR NON-AFRICAN AMERICAN > 60
[2017-11-06] MEDS: Pantoprazole 40 mg EC Tab PO SCH (10:30)
[2017-11-06] MEDS: PERPHENAZINE 16 MG PO SCH (18:01)
--- NOTE | 2017-11-06 18:42 | CP.PCM.PN ---
Subjective - Date & Time of Evaluation Date of Evaluation: 11/06/17 Time of Evaluation: 18:39 - Subjective Subjective: Colten Winkler PGY1 -- Medicine Progress Note for Dr. Zach Ridley Patient was seen and evaluated at bedside. Patient is without complaints. Patient admits to mild pain to the incision site. Patient was able to tolerate his diet and states he has been using the incentive spirometery. Patient does not endorse having a bowel movement as of yet, however he admits to passing gas. Patient otherwise denies chest pain, palpitations, shortness of breath, wheezing, sore throat, nausea, vomiting, diarrhea, constipation, dysuria, lightheadedness, dizziness, headache, changes to vision, changes to hearing, and lower extremity edema, fever, and/or chills. Objective - Vital Signs/Intake and Output Vital Signs (last 24 hours): Temp Pulse Resp BP Pulse Ox 98.4 F 85 20 115/68 98 11/06/17 15:05 11/06/17 15:05 11/06/17 15:05 11/06/17 15:05 11/06/17 15:05 Intake and Output: 11/06/17 11/06/17 06:59 18:59 Intake Total 2100 1220 Output Total 1530 1680 Balance 570 -460 - Medications Medications: Current Medications Aripiprazole (Abilify) 2 mg PO DAILY [facility] Last Admin: 11/06/17 08:30 Dose: 2 mg Benztropine Mesylate (Cogentin) 1 mg PO BID [facility] Last Admin: 11/06/17 08:30 Dose: 1 mg Clonazepam (Klonopin) 0.5 mg PO BID [facility] Last Admin: 11/06/17 18:01 Dose: 0.5 mg Docusate Sodium (Colace) 100 mg PO TID [facility] Last Admin: 11/06/17 18:01 Dose: 100 mg Escitalopram Oxalate (Lexapro) 20 mg PO DAILY [facility] Last Admin: 11/06/17 08:30 Dose: 20 mg Ferrous Sulfate (Feosol) 325 mg PO DAILY [facility] Last Admin: 11/06/17 11:11 Dose: 325 mg Folic Acid (Folic Acid) 1 mg PO DAILY [facility] Last Admin: 11/06/17 08:30 Dose: 1 mg Home Med (Patient's Own Medication) 1 tab PO BID [facility] Last Admin: 11/06/17 18:01 Dose: 1 tab Hydromorphone/Sodium Chloride (Dilaudid Recovery Auditor) 6 mg IV Q4H PRN; Protocol PRN Reason: Pain, moderate (4-7) Last Admin: 11/05/17 16:35 Dose: 6 mg Ceftriaxone Sodium 1 gm/ (Sodium Chloride) 100 mls @ 100 mls/hr IVPB DAILY [facility] PRN Reason: Protocol Last Admin: 11/06/17 10:00 Dose: 100 mls/hr Potassium Chloride/Dextrose/Sod Cl (Potassium Chl 10 Meq In D5-1/2ns) 1,000 mls @ 150 mls/hr IV .Q6H40M [facility] Last Admin: 11/06/17 14:43 Dose: 150 mls/hr Levothyroxine Sodium (Synthroid) 75 mcg PO DAILY@0630 [facility] Last Admin: 11/06/17 05:41 Dose: 75 mcg Naloxone HCl (Narcan) 0.1 mg IVP Q2M PRN PRN Reason: apnea Pantoprazole Sodium (Protonix Ec Tab) 40 mg PO DAILY [facility] Last Admin: 11/06/17 10:30 Dose: 40 mg Risperidone (Risperdal Tab) 2 mg PO DAILY [facility] Last Admin: 11/06/17 09:30 Dose: 2 mg Risperidone (Risperdal Tab) 4 mg PO HS [facility] Last Admin: 11/05/17 22:26 Dose: 4 mg Tamsulosin HCl (Flomax) 0.4 mg PO DAILY [facility] Last Admin: 11/06/17 11:11 Dose: 0.4 mg - Labs Labs: 11/06/17 07:37 11/06/17 07:37 - Additional Findings Additional findings: - Constitutional Appears: Non-toxic, No Acute Distress Additional Comments: Patient is sitting up in chair. - Head Exam Head Exam: ATRAUMATIC, NORMAL INSPECTION, NORMOCEPHALIC - Eye Exam Eye Exam: EOMI, Normal appearance, PERRL Pupil Exam: NORMAL ACCOMODATION, PERRL. absent: Fixed, Unequal - ENT Exam ENT Exam: Mucous Membranes Moist, Normal Exam, Normal External Ear Exam, Normal Oropharynx - Neck Exam Neck exam: Positive for: Full Rom, Normal Inspection. Negative for: Lymphadenopathy, Thyromegaly - Respiratory Exam Respiratory Exam: Clear to Auscultation Bilateral, NORMAL BREATHING PATTERN. absent: Accessory Muscle Use, Chest Wall Tenderness, Decreased Breath Sounds, Prolonged Expiratory Phase, Rales, Rhonchi, Wheezes, Respiratory Distress, Stridor - Cardiovascular Exam Cardiovascular Exam: REGULAR RHYTHM, +S1, +S2 - GI/Abdominal Exam GI & Abdominal Exam: Normal Bowel Sounds, Soft. absent: Distended, Mass, Rebound, Rigid - Extremities Exam Extremities exam: Positive for: full ROM, normal capillary refill, normal inspection, pedal pulses present. Negative for: calf tenderness, joint swelling , pedal edema, tenderness - Back Exam Back exam: NORMAL INSPECTION - Neurological Exam Neurological exam: Alert, CN II-XII Intact, Normal Gait, Oriented x3 - Psychiatric Exam Psychiatric exam: Normal Affect, Normal Mood - Skin Skin Exam: Dry, Intact, Normal Color, Warm Assessment and Plan - Assessment and Plan (Free Text) Assessment: This is 62-year-old male with past medical history of prostate cancer , schizophrenia, depression, hypothyroidism, iron deficiency anemia, acid reflux , and hypertension who was admitted under Urologist Dr. Hernández for prostatectomy performed today (11/05), patient is status-post op day 0. Medicine team consulted to manage chronic medical issues. Plan: 1. Status-post op day 1 for prostatectomy - T-max 99.3 overnight * Tylenol PRN for fever * Monitor - Managed per primary physician - Incentive spirometry ten times an hour, while patient is awake - OOB as tolerated - PT eval & treat - Start on home med: - Tamsulosin 0.4mg daily - Wound is clean without any leakage - Urine catheter clean with clear liquid 2. Schizophrenia - Noticed medication list containing multiple antipsychotic (1st and 2nd gen). Called pharmacy listed in HPI to confirm medications. - Will restart home-meds (as confirmed by pharmacist) - Aripiprazole 2 mg daily - Benzotropine 1 mg BID - Perphenazine 16 mg BID - Risperidone 2 mg in AM daily - Risperidone 4 mg in PM daily 3. Hypothyroidism - Started home med * Levothyroxine 75 mcg PO daily - T4=0.95 - TSH=3.19 4. Hypertension - No medications for Blood Pressure noted on med list and/or per patient pharmacy - XR=332/[id number] - Monitor 5. GERD - On omeprazole but not carried by our pharmacy - Continue protonix 40mg PO daily 6. Iron-Deficiency Anemia - Hgb=8.3, down from 9.9 * Surgery aware - Most recent colonoscopy done by Dr. De Oliveira in August * Could not adequately examine colon due to poor prep, therefore is scheduled for repeat in 6 months - Continue Ferrous Sulfate 1 tab PO daily - Continue Folate 1 tab PO daily - Monitor with daily CBC 7. History of anxiety and depression - Continue with home meds: - Clonazepam 0.5 mg BID - Escitalopram 20 mg daily 8. Prophylaxis DVT: - PT evaluate and treat, recommendations appreciated - OOB as tolerated - SCDs - Holding anticoagulants for now GI: - Protonix 40mg PO Daily - HHD 2gm Na, low carb diet Patient seen and case discussed in detail with Attending Physician Dr. Zach Winkler PGY1
[2017-11-07] MEDS: Potassium Chl 10 mEq in D5-1/2 1,000 ML IV SCH ×4 (01:05→21:05)
[2017-11-07] MEDS: Levothyroxine 75 MCG TAB PO SCH (05:35)
--- NOTE | 2017-11-07 06:15 | CP.PCM.PN ---
Subjective - Date & Time of Evaluation Date of Evaluation: 11/07/17 Time of Evaluation: 06:45 - Subjective Subjective: Colten Winkler PGY1 -- Medicine Progress Note for Dr. Zach Ridley Patient was seen and evaluated at bedside. Patient is without complaints. Sleeping prior to evaluation. Patient admits to mild pain to the incision site, but is stating he feels well. Patient says he is using his incentive spirometery. Patient says he was able to have a bowel movement that was loose with brown colored liquid. Patient otherwise denies chest pain, palpitations, shortness of breath, wheezing, sore throat, nausea, vomiting, diarrhea, constipation, dysuria, lightheadedness, dizziness, headache, changes to vision, changes to hearing, and lower extremity edema, fever, and/or chills. Objective - Vital Signs/Intake and Output Vital Signs (last 24 hours): Temp Pulse Resp BP Pulse Ox 99 F 89 20 103/66 95 11/07/17 04:15 11/07/17 04:15 11/07/17 04:15 11/07/17 04:15 11/07/17 04:15 Intake and Output: 11/06/17 11/07/17 18:59 06:59 Intake Total 1220 1320 Output Total 1680 3070 Balance -460 -1750 - Medications Medications: Current Medications Acetaminophen (Tylenol 325mg Tab) 650 mg PO Q6H PRN PRN Reason: Fever >100.4 F; pain 4-7 Aripiprazole (Abilify) 2 mg PO DAILY [facility] Last Admin: 11/06/17 08:30 Dose: 2 mg Benztropine Mesylate (Cogentin) 1 mg PO BID [facility] Last Admin: 11/06/17 19:55 Dose: 1 mg Clonazepam (Klonopin) 0.5 mg PO BID [facility] Last Admin: 11/06/17 18:01 Dose: 0.5 mg Docusate Sodium (Colace) 100 mg PO TID [facility] Last Admin: 11/06/17 18:01 Dose: 100 mg Escitalopram Oxalate (Lexapro) 20 mg PO DAILY [facility] Last Admin: 11/06/17 08:30 Dose: 20 mg Ferrous Sulfate (Feosol) 325 mg PO DAILY [facility] Last Admin: 11/06/17 11:11 Dose: 325 mg Folic Acid (Folic Acid) 1 mg PO DAILY [facility] Last Admin: 11/06/17 08:30 Dose: 1 mg Home Med (Patient's Own Medication) 1 tab PO BID [facility] Last Admin: 11/06/17 18:01 Dose: 1 tab Hydromorphone/Sodium Chloride (Dilaudid Repair Welder) 6 mg IV Q4H PRN; Protocol PRN Reason: Pain, moderate (4-7) Last Admin: 11/05/17 16:35 Dose: 6 mg Ceftriaxone Sodium 1 gm/ (Sodium Chloride) 100 mls @ 100 mls/hr IVPB DAILY [facility] PRN Reason: Protocol Last Admin: 11/06/17 10:00 Dose: 100 mls/hr Potassium Chloride/Dextrose/Sod Cl (Potassium Chl 10 Meq In D5-1/2ns) 1,000 mls @ 150 mls/hr IV .Q6H40M [facility] Last Admin: 11/07/17 04:48 Dose: 150 mls/hr Levothyroxine Sodium (Synthroid) 75 mcg PO DAILY@0630 [facility] Last Admin: 11/07/17 05:35 Dose: 75 mcg Naloxone HCl (Narcan) 0.1 mg IVP Q2M PRN PRN Reason: apnea Pantoprazole Sodium (Protonix Ec Tab) 40 mg PO DAILY [facility] Last Admin: 11/06/17 10:30 Dose: 40 mg Risperidone (Risperdal Tab) 2 mg PO DAILY [facility] Last Admin: 11/06/17 09:30 Dose: 2 mg Risperidone (Risperdal Tab) 4 mg PO HS [facility] Last Admin: 11/06/17 21:12 Dose: 4 mg Tamsulosin HCl (Flomax) 0.4 mg PO DAILY [facility] Last Admin: 11/06/17 11:11 Dose: 0.4 mg - Labs Labs: 11/06/17 07:37 11/06/17 07:37 - Additional Findings Additional findings: - Constitutional Appears: Non-toxic, No Acute Distress Additional Comments: Patient is sitting up in chair. - Head Exam Head Exam: ATRAUMATIC, NORMAL INSPECTION, NORMOCEPHALIC - Eye Exam Eye Exam: EOMI, Normal appearance, PERRL Pupil Exam: NORMAL ACCOMODATION, PERRL. absent: Fixed, Unequal - ENT Exam ENT Exam: Mucous Membranes Moist, Normal Exam, Normal External Ear Exam, Normal Oropharynx - Neck Exam Neck exam: Positive for: Full Rom, Normal Inspection. Negative for: Lymphadenopathy, Thyromegaly - Respiratory Exam Respiratory Exam: Clear to Auscultation Bilateral, NORMAL BREATHING PATTERN. absent: Accessory Muscle Use, Chest Wall Tenderness, Decreased Breath Sounds, Prolonged Expiratory Phase, Rales, Rhonchi, Wheezes, Respiratory Distress, Stridor - Cardiovascular Exam Cardiovascular Exam: REGULAR RHYTHM, +S1, +S2 - GI/Abdominal Exam GI & Abdominal Exam: Normal Bowel Sounds, Soft. absent: Distended, Mass, Rebound, Rigid - Exam Exam: Additional Findings: Patient's franks is patent and with clear yellowish liquid. - Extremities Exam Extremities exam: Positive for: full ROM, normal capillary refill, normal inspection, pedal pulses present. Negative for: calf tenderness, joint swelling , pedal edema, tenderness - Back Exam Back exam: NORMAL INSPECTION - Neurological Exam Neurological exam: Alert, CN II-XII Intact, Normal Gait, Oriented x3 - Psychiatric Exam Psychiatric exam: Normal Affect, Normal Mood - Skin Skin Exam: Dry, Intact, Normal Color, Warm Assessment and Plan - Assessment and Plan (Free Text) Assessment: This is 62-year-old male with past medical history of prostate cancer , schizophrenia, depression, hypothyroidism, iron deficiency anemia, acid reflux , and hypertension who was admitted under Urologist Dr. Hernández for prostatectomy performed 11/05, patient is status-post op day 2. Medicine team consulted to manage chronic medical issues. Plan: 1. Status-post op day 2 for prostatectomy - T-max 99.3 overnight * Tylenol PRN for fever * Monitor - Managed per primary physician - Incentive spirometry encouraged ten times an hour, while patient is awake - OOB as tolerated - PT eval & treat - Continue home med: - Tamsulosin 0.4mg daily - Wound is clean without any leakage - Urine catheter clean with clear liquid 2. Schizophrenia - Noticed medication list containing multiple antipsychotic (1st and 2nd gen). Called pharmacy listed in HPI to confirm medications. - Will restart home-meds (as confirmed by pharmacist) - Aripiprazole 2 mg daily - Benzotropine 1 mg BID - Perphenazine 16 mg BID - Risperidone 2 mg in AM daily - Risperidone 4 mg in PM daily 3. Hypothyroidism - Continue home med * Levothyroxine 75 mcg PO daily - T4=0.95 - TSH=3.19 4. Hypertension - No medications for Blood Pressure noted on med list and/or per patient pharmacy - ZK=227/64 - Monitor 5. GERD - On omeprazole but not carried by our pharmacy - Continue protonix 40mg PO daily 6. Iron-Deficiency Anemia - Hgb=7.7, down from 8.3 - On repeat: Hgb=8.1 * Surgery aware - Most recent colonoscopy done by Dr. De Oliveira in August * Could not adequately examine colon due to poor prep, therefore patient is to be scheduled for repeat in 6 months - Ferrous Sulfate 1 tab PO daily - Folate 1 tab PO daily - Monitor with daily CBC 7. History of anxiety and depression - Continue with home meds: - Clonazepam 0.5 mg BID - Escitalopram 20 mg daily 8. Prophylaxis DVT: - PT evaluate and treat, recommendations appreciated - OOB as tolerated - SCDs - Holding anticoagulants for now GI: - Protonix 40mg PO Daily - HHD 2gm Na, low carb diet Prior to discharge, the following is recommended, per the Medicine marketing team lead by Attending Physician, Dr. Serrano: - Patient is to follow up with Dr. Frausto for repeat colonoscopy within 6 months - Patient is to follow up with Psychiatrist: Dr. Otoole, last seen 1 month ago. (note: In process of getting transferred to another psychiatrist within the same group. Patient has a psychiatry follow-up appointment that has already been scheduled on November 28. - Patient is to continue his home medications upon discharge - Rx will be printed and placed in patient's chart. - Aripiprazole 2 mg daily - Benzotropine 1 mg BID - Perphenazine 16 mg BID - Risperidone 2 mg in AM daily - Risperidone 4 mg in PM daily - Clonazepam 0.5 mg BID - Escitalopram 20 mg daily - Levothyroxine 75 mcg PO daily - Protonix 40mg PO daily - Tamsulosin 0.4mg daily Thank you for allowing me to participate in the care of the above named patient. Patient seen and case discussed in detail with Attending Physician Dr. Zach Winkler PGY1
[2017-11-07 07:34] LABS: BASO % 0.2 % (0.0-2.0); EOS # 0.1 K/uL (0.0-0.7); EOS % 0.5 % (0.0-4.0); HEMOGLOBIN 7.7 g/dL (12.0-18.0); LYMPH # 1.5 K/uL (1.0-4.3); MEAN CELL VOLUME 89.4 fL (80.0-94.0); MEAN CORPUSCULAR HEMOGLOBIN 30.5 pg (27.0-31.0); MEAN CORPUSCULAR HGB CONC 34.1 g/dL (33.0-37.0); MEAN PLATELET VOLUME 8.6 fL (7.2-11.7); MONO # 1.1 K/uL (0.0-0.8); MONO % 9.8 % (0.0-10.0); NEUT # 8.7 K/uL (1.8-7.0); NEUT % 76.5 % (50.0-75.0); RBC 2.53 Mil/uL (4.40-5.90); WHITE BLOOD COUNT 11.4 K/uL (4.8-10.8)
[2017-11-07 07:58] LABS: ALB/GLOB RATIO 1.1 (1.0-2.1); ALBUMIN 2.9 g/dL (3.5-5.0); ALT/SGPT 20 U/L (21-72); AST/SGOT 14 U/L (17-59); BLOOD UREA NITROGEN 14 mg/dL (9-20); CALCIUM 8.2 mg/dl (8.6-10.4); GFR NON-AFRICAN AMERICAN > 60
[2017-11-07] MEDS: PERPHENAZINE 16 MG PO SCH ×2 (11:02→18:22)
[2017-11-07] MEDS: Pantoprazole 40 mg EC Tab PO SCH (11:02)
--- NOTE | 2017-11-07 13:31 | RAD ---
Date of service: 11/05/2017 PROCEDURE: Intraoperative fluoroscopy HISTORY: FOREIGN BODY(SURGICAL INSTRUMENT) COMPARISON: Not available TECHNIQUE: Intraoperative fluoroscopy was provided for evaluation of possible intraoperative foreign body. Total time of fluoroscopy was 3.1 seconds. Cumulative dose was 0.22982 mGy meters squared. FINDINGS: Multiple fluoroscopic spot films are submitted. IMPRESSION: Fluoroscopy provided.
[2017-11-07 14:05] LABS: BASO # 0.1 K/uL (0.0-0.2); BASO % 0.5 % (0.0-2.0); EOS # 0.1 K/uL (0.0-0.7); EOS % 0.9 % (0.0-4.0); HEMOGLOBIN 8.1 g/dL (12.0-18.0); LYMPH # 1.4 K/uL (1.0-4.3); MEAN CELL VOLUME 89.1 fL (80.0-94.0); MEAN CORPUSCULAR HEMOGLOBIN 29.9 pg (27.0-31.0); MEAN CORPUSCULAR HGB CONC 33.6 g/dL (33.0-37.0); MEAN PLATELET VOLUME 9.4 fL (7.2-11.7); MONO # 1.3 K/uL (0.0-0.8); MONO % 10.3 % (0.0-10.0); NEUT # 9.7 K/uL (1.8-7.0); NEUT % 77.3 % (50.0-75.0); NRBC % 0.1 % (0.0-2.0); RBC 2.71 Mil/uL (4.40-5.90); RED CELL DISTRIBUTION WIDTH 14.4 % (11.5-14.5); WHITE BLOOD COUNT 12.6 K/uL (4.8-10.8)
--- NOTE | 2017-11-07 16:27 | CP.PCM.CON ---
History of Present Illness - History of Present Illness History of Present Illness: 62 yo man with history of mild anemia, seen for the first time in the office o, recently diagnosed with prostate cancer, s/p radical prostatectomy 11/05. Hgb preoperatively in the office on 10/02 was 11.2, work up showing normal iron studies, boderline B12, normal retics. There was no evidence of hemoglobinopathy, no obvious bleeding or easy bruising reported by the patient. GI work up done revealed no obvious masses, but the exam was incomplete secondary to poor prep. His Hgb has dropped postoperatively, PMHx- Schizophrenia, anxiety disorder, ? chronic anemia Past Patient History - Past Medical History & Family History Past Medical History?: Yes - Past Social History Smoking Status: Never Smoked - CARDIAC Hx Cardiac Disorders: Yes Hx Hypercholesterolemia: Yes Hx Hypertension: Yes - PULMONARY Hx Respiratory Disorders: Yes Hx Bronchitis: Yes - NEUROLOGICAL Hx Neurological Disorder: No - HEENT Hx HEENT Problems: No - RENAL Hx Chronic Kidney Disease: Yes Other/Comment: 3RD STAGE KIDNEY DISEASE - PT VOIDS NOT ON DIALYSIS - ENDOCRINE/METABOLIC Hx Hypothyroidism: Yes - HEMATOLOGICAL/ONCOLOGICAL Hx Blood Disorders: Yes Hx Cancer: Yes (bladder and prostate) - INTEGUMENTARY Hx Dermatological Problems: No - MUSCULOSKELETAL/RHEUMATOLOGICAL Hx Musculoskeletal Disorders: No Hx Falls: No - GASTROINTESTINAL Hx Gastrointestinal Disorders: Yes Hx Gastroesophageal Reflux: Yes - GENITOURINARY/GYNECOLOGICAL Hx Genitourinary Disorders: Yes Hx Bladder Cancer: Yes Hx Prostate Cancer: Yes Hx Prostate Problems: Yes - PSYCHIATRIC Hx Psychophysiologic Disorder: Yes Hx Anxiety: Yes Hx Bipolar Disorder: Yes Hx Depression: Yes Hx Schizophrenia: Yes Hx Substance Use: No - SURGICAL HISTORY Hx Surgeries: Yes Other/Comment: DENTAL EXTRACTIONS. HX: CYSTO-PROSTATE BIOPSY - ANESTHESIA Hx Anesthesia: Yes Hx Anesthesia Reactions: No Hx Malignant Hyperthermia: No Meds Allergies/Adverse Reactions: Allergies Allergy/AdvReac Type Severity Reaction Status Date / Time hydrochlorothiazide Allergy Intermediate DIZZINESS Verified 10/27/17 11:35 [From Dyazide] triamterene [From Dyazide] Allergy Intermediate DIZZINESS Verified 10/27/17 11: 35 - Medications Medications: Current Medications Acetaminophen (Tylenol 325mg Tab) 650 mg PO Q6H PRN PRN Reason: Fever >100.4 F; pain 4-7 Aripiprazole (Abilify) 2 mg PO DAILY [facility] Last Admin: 11/07/17 11:01 Dose: 2 mg Benztropine Mesylate (Cogentin) 1 mg PO BID [facility] Last Admin: 11/07/17 11:01 Dose: 1 mg Clonazepam (Klonopin) 0.5 mg PO BID [facility] Last Admin: 11/07/17 11:02 Dose: 0.5 mg Docusate Sodium (Colace) 100 mg PO TID [facility] Last Admin: 11/07/17 13:25 Dose: 100 mg Escitalopram Oxalate (Lexapro) 20 mg PO DAILY [facility] Last Admin: 11/07/17 11:02 Dose: 20 mg Folic Acid (Folic Acid) 1 mg PO DAILY [facility] Last Admin: 11/07/17 11:02 Dose: 1 mg Home Med (Patient's Own Medication) 1 tab PO BID [facility] Last Admin: 11/07/17 11:02 Dose: 1 tab Potassium Chloride/Dextrose/Sod Cl (Potassium Chl 10 Meq In D5-1/2ns) 1,000 mls @ 150 mls/hr IV .Q6H40M [facility] Last Admin: 11/07/17 08:05 Dose: Not Given Levothyroxine Sodium (Synthroid) 75 mcg PO DAILY@0630 [facility] Last Admin: 11/07/17 05:35 Dose: 75 mcg Naloxone HCl (Narcan) 0.1 mg IVP Q2M PRN PRN Reason: apnea Pantoprazole Sodium (Protonix Ec Tab) 40 mg PO DAILY [facility] Last Admin: 11/07/17 11:02 Dose: 40 mg Risperidone (Risperdal Tab) 2 mg PO DAILY [facility] Last Admin: 11/07/17 11:01 Dose: 2 mg Risperidone (Risperdal Tab) 4 mg PO HS [facility] Last Admin: 11/06/17 21:12 Dose: 4 mg Tamsulosin HCl (Flomax) 0.4 mg PO DAILY [facility] Last Admin: 11/07/17 11:05 Dose: 0.4 mg Results - Vital Signs Recent Vital Signs: Last Vital Signs Temp 98.4 F 11/07/17 15:38 Pulse 83 11/07/17 15:38 Resp 20 11/07/17 15:38 BP 118/70 11/07/17 15:38 Pulse Ox 98 11/07/17 15:38 - Labs Result Diagrams: 11/07/17 13:55 09/07/18 07:20 Labs: Laboratory Results - last 24 hr 11/07/17 11/07/17 11/07/17 07:20 07:20 07:20 WBC 11.4 H RBC 2.53 L Hgb 7.7 L Hct 22.6 L MCV 89.4 MCH 30.5 MCHC 34.1 RDW 14.0 Plt Count 160 MPV 8.6 Neut % (Auto) 76.5 H Lymph % (Auto) 13.0 L [place] % (Auto) 9.8 Eos % (Auto) 0.5 Baso % (Auto) 0.2 Neut # (Auto) 8.7 H Lymph # (Auto) 1.5 [place] # (Auto) 1.1 H Eos # (Auto) 0.1 Baso # (Auto) 0.0 Sodium 138 Potassium 4.6 Chloride 103 Carbon Dioxide 29 Anion Gap 11 BUN 14 Creatinine 1.1 Est GFR ( Amer) > 60 Est GFR (Non-Af Amer) > 60 Random Glucose 143 H Calcium 8.2 L Phosphorus 2.5 Magnesium 1.8 Total Bilirubin 0.2 AST 14 L ALT 20 L Alkaline Phosphatase 43 Total Protein 5.5 L Albumin 2.9 L Globulin 2.6 Albumin/Globulin Ratio 1.1 Free T4 1.05 11/07/17 13:55 WBC 12.6 H RBC 2.71 L Hgb 8.1 L Hct 24.1 L MCV 89.1 MCH 29.9 MCHC 33.6 RDW 14.4 Plt Count 166 MPV 9.4 Neut % (Auto) 77.3 H Lymph % (Auto) 11.0 L [place] % (Auto) 10.3 H Eos % (Auto) 0.9 Baso % (Auto) 0.5 Neut # (Auto) 9.7 H Lymph # (Auto) 1.4 [place] # (Auto) 1.3 H Eos # (Auto) 0.1 Baso # (Auto) 0.1 Sodium Potassium Chloride Carbon Dioxide Anion Gap BUN Creatinine Est GFR ( Amer) Est GFR (Non-Af Amer) Random Glucose Calcium Phosphorus Magnesium Total Bilirubin AST ALT Alkaline Phosphatase Total Protein Albumin Globulin Albumin/Globulin Ratio Free T4
[2017-11-08] MEDS: Potassium Chl 10 mEq in D5-1/2 1,000 ML IV SCH ×2 (02:07→08:50)
[2017-11-08] MEDS: Levothyroxine 75 MCG TAB PO SCH (06:01)
[2017-11-08 08:03] LABS: ALT/SGPT 18 U/L (21-72); AST/SGOT 15 U/L (17-59); BLOOD UREA NITROGEN 13 mg/dL (9-20); CALCIUM 8.3 mg/dl (8.6-10.4); GFR NON-AFRICAN AMERICAN > 60
[2017-11-08 08:19] LABS: BASO % 0.2 % (0.0-2.0); EOS # 0.3 K/uL (0.0-0.7); EOS % 2.7 % (0.0-4.0); HEMOGLOBIN 8.4 g/dL (12.0-18.0); LYMPH # 1.5 K/uL (1.0-4.3); LYMPH % 15.2 % (20.0-40.0); MEAN CORPUSCULAR HEMOGLOBIN 30.4 pg (27.0-31.0); MEAN CORPUSCULAR HGB CONC 33.8 g/dL (33.0-37.0); MONO # 0.8 K/uL (0.0-0.8); MONO % 8.6 % (0.0-10.0); NEUT # 7.2 K/uL (1.8-7.0); NEUT % 73.3 % (50.0-75.0); RBC 2.75 Mil/uL (4.40-5.90); RED CELL DISTRIBUTION WIDTH 13.7 % (11.5-14.5); WHITE BLOOD COUNT 9.9 K/uL (4.8-10.8)
[2017-11-08 08:35] VITALS: BP 134/77; PULSE 80; TEMP 99; O2SAT 99
[2017-11-08] MEDS: Pantoprazole 40 mg EC Tab PO SCH (09:31)
[2017-11-08] MEDS: PERPHENAZINE 16 MG PO SCH (09:31)
--- NOTE | 2017-11-22 01:32 | DS ---
See the admission history and physical. See the operative note. A very pleasant gentleman with underlying prostate cancer. He also has urinary retention, voiding dysfunction, he has other issues. He was brought in for radical retropubic prostatectomy, open. Again, see the history and physical and operative note for further details. At this point, he underwent successful operation without difficulty. Postoperatively, the patient remained stable, at the time of discharge home his pathology is currently pending. He is being discharged home with an indwelling Carrillo catheter and 2 FLORI drains, to be removed. The patient is in stable condition. He is given clear instructions on catheter care, he has had catheters before. He has had urinary retention, multiple urinary tract infections and so he has very clear plans on how to take care of it. He will be discharged home with chantell that will be removed in the office. To follow the patient is given my phone number. During consultation, appreciate the medical consultations and input from both, Hematology and General Medical. FINAL DIAGNOSES: 1. Prostate cancer. 2. Urinary retention. 3. Hematuria. 4. Schizophrenia. 5. Anemia. 6. He has multiple other medical problems as listed on the diagnostic code from the medical doctors, see that as well. Further plans will follow. At the time of discharge, he was in stable condition, with stable vital signs, with urine draining well, with an indwelling Carrillo with 2 s. As an outpatient nursing plan and then further plans will follow. Terrence Hernández MD
--- NOTE | 2017-12-03 06:39 | OP ---
PROCEDURE DATE: 11/05/2017 UROLOGY OPERATION PREOPERATIVE DIAGNOSES: Clinically localized prostate cancer, urinary retention, voiding dysfunction, possible myogenic components of the bladder, recurrent infections. POSTOPERATIVE DIAGNOSES: Clinically localized prostate cancer, urinary retention, voiding dysfunction, possible myogenic components of the bladder, recurrent infections. PROCEDURE: Open radical retropubic prostatectomy. SURGEON: Terrence Hernández MD BARTENDER SERVER: Destiney Hernández MD. SPECIMENS: Prostate, seminal vesicles, and vas deferens. Obturator lymph nodes, left and right package. COMPLICATIONS: There were no complications. BLOOD LOSS: About 300 to 400 mL. At the termination of the procedure, we left the Carrillo catheter with about 12 mL in the balloon, and we also left two FLORI drains. UROLOGY OPERATIVE FINDINGS: There is no lymphadenopathy to speak of, we sent some tissue, and the other significant finding, we were able to remove the prostate without difficulty. We will make a nice anastomosis. INDICATIONS: See history and physical for further details. A very pleasant gentleman with very low grade disease. He has had previous biopsies to confirm a prostate cancer. We discussed options. He has recurrent episodes of retention, therefore, we thought better in this gentleman to do an open prostatectomy. We actually discussed with him robotic surgery, but for various reasons, the patient was not leaving our hospital. After discussing the options, I have also made arrangements to have an cardiovascular physician assistant surgeon for the level of difficulty of this procedure given his procedure. I have arranged with Dr. Destiney Hernández, another board certified urologist, for assistance, and he is here now. I explained to the patient risks, benefits, and alternatives of erectile dysfunction. I explained the possibility that the surgery would not work in terms of helping him urinate, given the fact that some of the component is obstruction from prostate, but there is another component that seems to be at his bladder. He does not have the proper sensation. From a testing standpoint including the possibility for urodynamics, we had discussed all the different options. I really discussed with him second and third opinions. He already had a second opinion by another urologist before he ever met me. After discussing those various exams, doctor was also preferring to recommend the above procedures. We discussed options. We discussed radiation treatment. We discussed active surveillance. Active surveillance given his low grade disease may be completely appropriate, but it did not help him, and that is what we have been doing, following him, but after discussing the many options, although he is having no signs of progression of germ cell cancer, he is having recurrent episodes of retention and recurrent infections. So he is amenable for the above procedure. DESCRIPTION OF PROCEDURE: After obtaining informed consent, the patient was placed on the table. Routine monitors were placed, and time-out was called to confirm the patient and positioning. It turns out the surgical field that was brought up was unsterile, so we had to resterilize it for the procedure. I just want to mention that for thoroughness and completeness as I had mentioned in my previous dictation. The patient was positioned on the table over the break in the table with the a little bit elevated and the break in the table, please note, was flexed to a point of maximum tension in a Trendelenburg in our standard fashion. The patient was secured to the table. At this point, we inserted a Carrillo catheter. We prepped the patient in a sterile fashion. The field was sterile. I actually put about 20 to 25 mL in the balloon without complication. I just want to mention that what we drained was about 400 mL of clear yellow urine, and sent off for culture. We then made a small midline incision just below the umbilicus down to the symphysis pubis, and carried down to the underlying fat and fascia. We the rectus muscle with one layer deep under the fascia to separate out all planes. I now created a nice little pocket ready to place my Yoon. I again identified my landmarks, iliac veins, and I created a little pocket. I now began my dissection to the pelvic node dissection. I used the obturator nerve posteriorly. I can identify these well on both sides equally, describing as being a left and right lymph node dissection but there was really almost no lymph node to speak of. The obturator passage was really small. We used a vein retractor to retract away the iliac vessel. We just cleaned out the lymph nodes to the sidewall. No major issue to speak of. I sat down for a final resection. Now, we turned our attention towards the prostatectomy portion. We passed the balloon and the retractor. We put it on a maximum tension. We took the dorsal venous complex in a fine fashion. We placed right-angled clamps and we secured. We now put a backbleeding stitch across the prostate. We now dissected out the urethra both sharply and bluntly. I passed a vessel, passed an umbilical behind it. no bleeding noted. We now dissected out the urethra nicely. We actually transected the urethra anteriorly, put two stitches in, and then we went a little bit laterally more and put another two stitches in and then posteriorly in a standard fashion. I do want to mention, I used the clamp to line them up the splenic curve and the tonsil clamp, so I know where my future 1, 3, and 5 o'clock positions are. We now inspected carefully. There was no bleeding . Urethra was nicely dissected. We cut it posteriorly. We now began our dissection to go over the midline of the prostate. We created a little pocket to stay out of the prostate tissue, and also very gently and carefully stay out of the rectum. We now continued to work our way around. We dissected both laterally up the planes all the way back now to the bladder neck. We did so with use of the Harmonic scalpel. We dissected out fairly easily without major difficulty. We continued working posteriorly and laterally on each side. We dissected the planes. Dissected pretty easily all the way back to the bladder neck. Now, we turned our attention to the midline, and we dissected down in the middle where the vas deferens and seminal vesicles where, and we peeled off the seminal vesicles on each side as much as we can get out, and we transected them. We now turned our attention next towards the bladder neck. It is not quite bladder neck sparing. We filled the balloon. We palpated. We made an incision in the junction between the prostate and the bladder, and we went straight down. Once we opened up that area, we now held the Carrillo catheter up. We passed two ureteral catheters, left and right in the ureteral orifice. We identified them to protect them for the future, and now we transected posteriorly along the bladder and the prostate nicely and easily the remainder of the way. We now inspected for any bleeding, we irrigated the bottom. Rectum was grossly intact. Prostate was removed. We approximated our bladder neck and we used a tennis racket fashion. We closed the bladder. We approximated our size to about the 18-Iranian with the Carrillo, and we also everted the edges to pucker out the mucosa. We had used the 6-0 Monocryl, UR6, UR2, six needles. We re-approximated and we brought the bladder and the distal urethra back together. We were now ready for closure. It closed well. We irrigated copiously. The catheter was irrigated back and forth, there was almost no leaking, it was nicely anastomotic sutured. We now put two FLORI drains in. We removed our sponges that we had placed during the pelvic node dissection as we put our drains. We re-approximated the muscles just for cosmetic, then we approximated the fascia PDS. We closed the skin with chantell. We secured everything in place with stay sutures. The catheter was irrigating well. The patient tolerated the procedure well without complication, brought to recovery room in stable fashion. There were no complications. Vital signs were stable. Terrence Hernández MD
== END 2017-11-08 17:00 | disposition home or self-care (01) | DRG 334 ==
LOC: C.9S 06:37 → C.6T 17:52
PROVIDERS: ADMIT Urology; ATTEND Urology
PROC: 07TJ0ZZ Resection of Left Inguinal Lymphatic, Open Approach (ICD-10-PCS; 2017-11-05)
PROC: 07TH0ZZ Resection of Right Inguinal Lymphatic, Open Approach (ICD-10-PCS; 2017-11-05)
PROC: 0VT00ZZ Resection of Prostate, Open Approach (ICD-10-PCS; principal; 2017-11-05 07:30)
DX: C61 Malignant neoplasm of prostate (principal); F20.9 Schizophrenia, unspecified; N18.3 Chronic kidney disease, stage 3 (moderate); R33.9 Retention of urine, unspecified; N40.0 Benign prostatic hyperplasia without lower urinary tract symptoms; E03.9 Hypothyroidism, unspecified; D64.9 Anemia, unspecified; I51.7 Cardiomegaly; Z85.51 Personal history of malignant neoplasm of bladder; I12.9 Hypertensive chronic kidney disease with stage 1 through stage 4 chronic kidney disease, or unspecified chronic kidney disease; F31.9 Bipolar disorder, unspecified

== ENCOUNTER → 2018-05-16 | Outpatient (CLI) | payer OTHER | LOC: C.LAB 09:16 | DX: N18.3 Chronic kidney disease, stage 3 (moderate) (principal) ==